=== PATIENT | male | born 1950 | race Caucasian/White ===

== ENCOUNTER → 2017-01-17 | Outpatient (CLI) | payer MEDICARE, BC | END | disposition home or self-care (01) | LOC: GMAL 10:31 | PROVIDERS: ATTEND Family Medicine | DX: D51.3 Other dietary vitamin B12 deficiency anemia (principal); Z12.5 Encounter for screening for malignant neoplasm of prostate; E55.9 Vitamin D deficiency, unspecified | CPT/HCPCS: 82306; 82607; G0103 ==

== ENCOUNTER → 2017-04-17 | Outpatient (CLI) | payer MEDICARE, BC ==
--- NOTE | 2017-04-18 08:43 | MRI ---
EXAM DESCRIPTION: Cervical Spine CLINICAL HISTORY: 67 years,Male,CERVICALGIA COMPARISON: None TECHNIQUE: MRI performed multiple sequences of the cervical spine. FINDINGS: The signal in the cervical vertebral bodies are unremarkable. The cervical cord is normal signal and morphology. Surrounding soft tissues unremarkable. Dense and arch of C1: unremarkable. C2-3: There is no significant loss of disc height. There is minimal broad-based disc bulge. Facets are minimal hypertrophy. No neural foraminal stenosis. No spinal canal stenosis. C3-4: There is no significant loss of disc height. There is minimal broad-based disc bulge. Facets are mild to moderate right mild left hypertrophy. Mild right neural foraminal stenosis. No spinal canal stenosis. C4-5: There is minimal loss of disc height. There is minimal focal central disc bulge. Facets are moderate to severe right facet hypertrophy mild left. Minimal if any right neural foraminal stenosis. No spinal canal stenosis. C5-6: There is moderate loss of disc at. There is moderate annular disc bulge of about 4 mm thickness. Facets are moderate hypertrophy. Mild bilateral neural foraminal stenosis. Minimal spinal canal stenosis. C6-7: There is moderate severe loss of disc height. There is moderate annular disc bulge of 3 mm thickness. Facets are mild hypertrophy. Mild bilateral neural foraminal stenosis. Minimal spinal canal stenosis. C7-T1:There is no significant loss of disc height. There is no disc bulge. Facets are mild hypertrophy bilaterally.. No neural foraminal stenosis. No spinal canal stenosis. IMPRESSION: There are disc bulges and facet arthropathy as described above throughout the cervical spine with the worse disc bulges at C5 and C6 resulting in minimal spinal canal stenosis. And a few levels of mostly mild neural foraminal stenosis from C3 through C6-7. Due mostly to the disc bulges and facet arthropathy. Electronically signed by: Bairon Schwartz MD 04/18/2017 8:41 AM CDT
--- NOTE | 2017-04-18 09:33 | MRI ---
EXAM DESCRIPTION: Lumbar Spine w/wo Contrast CLINICAL HISTORY: 67 years,Male,LOW BACK PAIN COMPARISON: None TECHNIQUE: MRI before multiple sequences of the lumbar spine. With and without gadolinium contrast FINDINGS: The vertebral bodies demonstrate a 1.2 cm hemangioma in the body of L3. Spinal cord normal signal and morphology. Tip of the conus is at L1-L2. No enhancement Surrounding soft tissues unremarkable. L5-S1: Disk height is moderate loss. There is mild annular disc bulge up to 3 mm in thickness. The facettes mild hypertrophy. There is no spinal canal stenosis. There is moderate bilateral neural foraminal stenosis due mostly to loss of disc height and disc bulge. L4-5: Disk height is minimal loss. There is mild annular disc bulge but a 3 mm thickness and a small posterior central area of high intensity in the disc. The facettes moderate hypertrophy bilaterally. There is no spinal canal stenosis. There is moderate bilateral neural foraminal stenosis worse on the right due to disc bulge mostly. L3-4: Disk height is unremarkable. There is minimal annular disc bulge. The facettes moderate hypertrophy. There is no spinal canal stenosis. There is moderate bilateral neural foraminal stenosis due to facet hypertrophy and disc bulge. L2-3: Disk height is unremarkable. There is minimal annular disc bulge. The facettes moderate hypertrophy bilaterally. There is no spinal canal stenosis. There is no neural foraminal stenosis. L1-2: Disk height is unremarkable. There is mild posterior lateral disc bulges. The facettes moderate hypertrophy bilaterally. There is no spinal canal stenosis. There is no neural foraminal stenosis. IMPRESSION: There is neural foraminal stenosis mostly moderate the lower 3 lumbar levels due to mostly to disc bulge and loss of disc height and to some degree facet arthropathy. There is moderate facet arthropathy at the upper 2 lumbar levels but no stenosis. Small annular fissure in the posterior central L4-5 disc bulge. Electronically signed by: Bairon Schwartz MD 04/18/2017 9:32 AM CDT
== END | disposition home or self-care (01) ==
LOC: MRI 11:10
PROVIDERS: ATTEND Family Medicine
DX: M48.06 Spinal stenosis, lumbar region (principal); M48.02 Spinal stenosis, cervical region

== ENCOUNTER → 2017-06-01 | Outpatient (CLI) | payer MEDICARE, OTHER | END | disposition home or self-care (01) | LOC: GMAL 10:36 | PROVIDERS: ATTEND Family Medicine | DX: E55.9 Vitamin D deficiency, unspecified (principal); M10.9 Gout, unspecified ==

== ENCOUNTER → 2017-06-09 | Outpatient (CLI) | payer MEDICARE, OTHER ==
--- NOTE | 2017-06-11 00:36 | CT ---
EXAM DATE: 06/09/2017 12:00 AM PLANT CONTROLS SPECIALIST. PROCEDURE: CT NECK ANGIOGRAPHY WITH IV CONTRAST. INDICATION: CAROTID ARTERY STENOSIS. COMPARISON: None. TECHNIQUE: Axial CT images of the neck were obtained after administration of intravenous contrast. Coronal and sagittal maximal intensity projection reformatted images were also obtained. 3-D postprocessing was acquired at an independent workstation. This exam was performed according to our departmental dose-optimization program which includes use of Automated Exposure Control, adjustment of the mA and/or kV according to patient size and/or use of iterative reconstruction technique. FINDINGS: Moderate calcific atherosclerosis of the aortic arch. The left vertebral artery arises from the aortic arch. Otherwise conventional arch anatomy. The right common carotid artery demonstrates normal course and caliber. There is mild calcific atherosclerosis of the carotid bulb without significant stenosis of the proximal right internal carotid artery. The remainder of the right ICA is unremarkable. The left common carotid artery demonstrates normal course and caliber. There is moderate soft and calcified plaque at the carotid bulb without significant stenosis of the left ICA. The remainder of the left ICA: Is unremarkable. Codominant vertebral arteries. No significant stenosis. Note is made of origin bilateral assistant plant controller bilaterally. The partially visualized intracranial contents are unremarkable. Normal orbits, paranasal sinuses, and mastoid air cells. The soft tissues of the neck are unremarkable. Unremarkable aerodigestive tract. Atrophic or absent right parotid gland. Bulky left cervical lymphadenopathy at the level two and level three station, for example level 2A image 67 series 2 measuring 2.6 cm, and level three image 52 measuring 2.5 cm. IMPRESSION: Scattered atherosclerotic plaque of the bilateral carotid bulbs without significant stenosis of the major neck vessels. Bulky lymphadenopathy of the left level two and level three stations. Short-term interval follow-up or tissue sampling is recommended to evaluate for malignancy. Absent or atrophic right parotid gland. Electronically signed by: Ari Jeffers MD 06/11/2017 12:35 AM PLANT CONTR[employer] SPECIALIST
== END | disposition home or self-care (01) ==
LOC: CT 11:04
PROVIDERS: ATTEND Family Medicine
DX: I65.23 Occlusion and stenosis of bilateral carotid arteries (principal)

== ENCOUNTER 2017-09-20 13:50 | Inpatient (IN) | payer MEDICARE, OTHER ==
[2017-09-20] MEDS ORDERED: SODIUM CHLORIDE 0.9% 1000ML 1,000 ML IVS ONE ×2 (14:07→21:06)
[2017-09-20] MEDS ORDERED: predniSONE 20 MG TAB PO ONE (14:07)
[2017-09-20] MEDS ORDERED: ONDANSETRON ODT 8 MG TAB SL ONE (14:07)
[2017-09-20] MEDS ORDERED: FLUCONAZOLE 100 MG TAB PO ONE (14:07)
[2017-09-20] MEDS ORDERED: POTASSIUM CHLORIDE ELIXIR 20 MEQ/15 ML UD PO ONE (14:41)
--- NOTE | 2017-09-20 15:06 | RAD ---
EXAM DESCRIPTION: Abdomen Series CLINICAL HISTORY: 67 years Male, nvd COMPARISON: January 04, 2010 FINDINGS: A right-sided PICC line is present without apparent complication. The cardiomediastinal silhouette is unremarkable. Subsegmental atelectasis or scarring is noted in the left base, but there is no airspace consolidation or pleural effusion. No free subdiaphragmatic gas or intra-abdominal air-fluid level. The bowel gas pattern is nonobstructive. Several small pelvic calcifications probably represent phleboliths. Medical tubing projecting over the upper abdomen probably represents a feeding tube. There is no suspicious bone lesion. IMPRESSION: No acute findings. Electronically signed by: Kingston Gray MD 09/20/2017 3:05 PM DOOR SLINGER
--- NOTE | 2017-09-20 16:00 | RAD ---
EXAM DESCRIPTION: Chest,2 Views CLINICAL HISTORY: 67 years Male, backed up picc line, afib new COMPARISON: 04 January 2010 TECHNIQUE: PA/lateral FINDINGS: A PICC line is seen in place on the patient's right with the distal tip in the region of the superior vena cava. The lungs are clear. The heart is within range of normal. No pleural fluid is seen. IMPRESSION: A right-sided PICC line is seen with the distal tip in the region of the superior vena cava. Electronically signed by: Bairon Blackwell MD 09/20/2017 3:59 PM [facility]
[2017-09-20] MEDS ORDERED: METOPROLOL TARTRATE 25 MG TAB PO ONE (16:43)
[2017-09-20] MEDS ORDERED: cefTRIAXone SODIUM 1 GM in SODIUM CHL 0.9% 50ML MIN-BAG+ 50 ML IVPB ONE (16:57)
[2017-09-20] MEDS ORDERED: cefTRIAXone SODIUM 1 GM VIAL ONE (17:39)
[2017-09-20] MEDS ORDERED: SODIUM CHL 0.9% 50ML MIN-BAG+ 50 ML IVPB ONE (17:40)
--- NOTE | 2017-09-20 17:56 | ED.PDOC ---
History of Present Illness - General Chief Complaint: General Stated Complaint: dizziness, weakness Time Seen by Provider: 09/20/17 13:53 Source: patient Exam Limitations: no limitations - History of Present Illness Initial Comments: the patient is a 67-year-old male presenting to the emergency room secondary to generalized weakness and dizziness. He has been feeling this for the last for 5 days. He has had episodes in the past of significant idiopathic tachycardia he reports. He has not been on any blood thinners. He does not know of any history of atrial fibrillation or atrial flutter. He is not having any chest pain. He does get shortness of breath with activity. Blood pressures were low here today on the order of 80s to 90s on the systolic end. Heart rates have ranged from 140-180 at rest. Telemetry and EKG showed atrial fibrillation with rapid ventricular rate. Again this is a new diagnosis to the patient. 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 He has treated and Alytics for this. He did just have radiation couple of days ago. He had chemotherapy somewhere between 10 days and 2 weeks ago. He had blood work done around a week ago showing a normal kidney function. the patient has not had any fevers. No dysuria. He does have chronic neck pain. No productive cough. No runny nose. No headache. No syncope. Today he has had a couple of near syncopal episodes with standing. He did have a couple of episodes of diarrhea this morning. No blood. Timing/Duration: unsure Severity: mild Improving Factors: nothing Worsening Factors: nothing Associated Symptoms: loss of appetite, malaise, shortness of breath - With exertion Allergies/Adverse Reactions: Allergies NO KNOWN ALLERGY Allergy (Verified 09/20/17 14:12) Review of Systems - Review of Systems Constitutional: States: malaise, weakness - generalized EENTM: States: throat pain - hronic from his cancer Respiratory: States: short of breath - with activity Cardiology: States: no symptoms reported Gastrointestinal/Abdominal: States: diarrhea - today only Genitourinary: States: no symptoms reported Musculoskeletal: States: no symptoms reported Skin: States: no symptoms reported Neurological: States: no symptoms reported Endocrine: States: no symptoms reported All other Systems: No Change from Baseline Past Medical History (General) - Patient Medical History Hx Hypertension: Yes Hx Gastroesophageal Reflux: Yes Hx Cancer: Yes - epiglottis, neck - Vaccination History Hx Influenza Vaccination: Yes Hx Pneumococcal Vaccination: No - Social History Hx Tobacco Use: No Hx Alcohol Use: No Family Medical History - Family History Mother Family History: Unknown Physical Exam - Physical Exam General Appearance: Alert, Frail, Ill Appearing Eye Exam: bilateral normal Ears, Nose, Throat: hearing grossly normal, other - nares are clear. Neck: other - e does have chronic changes from his medical procedures including his tracheostomy Respiratory: lungs clear, normal breath sounds, no respiratory distress, no accessory muscle use Cardiovascular/Chest: normal peripheral pulses, no edema, tachycardia - irregular Peripheral Pulses: radial,right: 2+, radial,left: 2+, dorsalis pedis,right: 2+, dorsalis pedis,left: 2+ Gastrointestinal/Abdominal: non tender - g-tube is in place, soft Rectal Exam: deferred Back Exam: normal inspection, no CVA tenderness, no vertebral tenderness Extremity: normal range of motion, non-tender, normal inspection, no pedal edema , normal capillary refill Neurologic: box toe stitcher II-XII nml as tested, alert, normal mood/affect, oriented x 3 Skin Exam: pallor - ild Comments: Vital Signs - 24 hr 09/20/17 09/20/17 09/20/17 14:00 15:00 16:00 Temperature 97.4 F L Pulse Rate [ 92 H 140 H 106 H pulse ox] Respiratory 20 20 16 Rate Blood Pressure 100/58 95/53 127/53 [Left Arm] O2 Sat by Pulse 98 100 98 Oximetry Progress - Progress Progress: 09/20/17 17:58 the patient is a 67-year-old male presenting primarily due to symptoms that are likely related to hypotension. The patient does have some acute renal failure which may be due to hypotension but may also be partially due to mild dehydration, and certainly possibly chemotherapy toxicity.. The patient was given a liter of IV fluids. His kidney function does need to be followed. The patient does appear to have new onset atrial fibrillation with rapid ventricular rate. He has received 10 mg of IV diltiazem and 25 mg of oral metoprolol and is slowing down nicely. Additionally x-ray did show that his PICC line did appear to be in too far into the right atrium and possibly the upper part of the right ventricle. This was pulled back approximately 8 cm and x-ray was repeated confirming appropriate placement. This also did improve his heart rate. This PICC line has been in place for approximately 3 weeks. this is the most likely source for the new onset atrial fibrillation however infection and chemotherapy toxicity are certainly possibilities. Coronary artery disease can also not definitively be ruled out. The patient has a borderline troponin which is most likely due to hypotension. This can also be repeated later. The patient is feeling better with this treatment. No definitive source of infection has been found. However given his chemotherapy that he did receive the patient did also receive a dose of some stress dose steroids as well as a dose of Rocephin empirically and a dose of oral Diflucan empirically. The patient will be admitted for further monitoring overnight. For now I'm avoiding anticoagulation as he just had a foreign body removed from his right atrium and this may worsen internal bleeding/irritation. It may be reasonable to start anticoagulation tomorrow. It is uncertain how long the patient has been in atrial fibrillation. I do not have previous EKGs or telemetry monitoring to compare to. Monitor electrolytes. 09/20/17 18:04 critical care time spent is 30 minutes on management of the patient's conditions and plan of care. This excludes otherwise billable procedures. - Results/Orders Results/Orders: 09/20/17 14:06 Telemetry .CONTINUOUS A. fib with RVR with rates ranging from 140-180 bpm 09/20/17 14:15 EKG STAT atrial fibrillation with rapid ventricular rate and rate of 150 bpm. There is a right bundle branch block. Difficult to interpret otherwise. 09/20/17 17:07 BLOOD CULTURE Stat Laboratory Results - last 24 hr 09/20/17 09/20/17 09/20/17 14:21 14:21 14:21 WBC 11.5 H RBC 5.19 Hgb 15.3 Hct 45.1 MCV 86.9 MCH 29.4 MCHC 33.9 RDW 13.4 Plt Count 252 MPV 9.1 Absolute Neuts (auto) 9.30 H Absolute Lymphs (auto) 1.20 Absolute Monos (auto) 1.00 H Absolute Eos (auto) 0.00 Absolute Basos (auto) 0.00 Neutrophils % 80.8 H Lymphocytes % 10.1 L Monocytes % 8.4 Eosinophils % 0.3 L Basophils % 0.4 PT 11.2 INR 0.990 PTT (SP) 25.9 Sodium 132 L Potassium 3.3 L Chloride 94 L Carbon Dioxide 23 Anion Gap 18.3 H BUN 57 H Creatinine 2.56 H BUN/Creatinine Ratio 22.3 H Random Glucose 138 H Serum Osmolality 282.5 Lactic Acid Calcium 9.0 Magnesium 1.9 Total Bilirubin 1.0 AST 47 H ALT 81 H Alkaline Phosphatase 48 Creatine Kinase 25 L CK-MB (CK-2) 1.6 CK-MB (CK-2) % Not Reportable Troponin I 0.06 H Serum Total Protein 6.3 L Albumin 3.4 Globulin 2.9 Albumin/Globulin Ratio 1.2 Amylase 42 Lipase 18 L TSH 1.53 Urine Color Urine Appearance Urine pH Ur Specific [place] Urine Protein Urine Glucose (UA) Urine Ketones Urine Blood Urine Nitrite Urine Bilirubin Urine Urobilinogen Ur Leukocyte Esterase Urine RBC Urine WBC Ur Epithelial Cells Amorphous Sediment Urine Bacteria Urine Mucus 09/20/17 09/20/17 14:21 17:44 WBC RBC Hgb Hct MCV MCH MCHC RDW Plt Count MPV Absolute Neuts (auto) Absolute Lymphs (auto) Absolute Monos (auto) Absolute Eos (auto) Absolute Basos (auto) Neutrophils % Lymphocytes % Monocytes % Eosinophils % Basophils % PT INR PTT (SP) Sodium Potassium Chloride Carbon Dioxide Anion Gap BUN Creatinine BUN/Creatinine Ratio Random Glucose Serum Osmolality Lactic Acid 2.4 H* Calcium Magnesium Total Bilirubin AST ALT Alkaline Phosphatase Creatine Kinase CK-MB (CK-2) CK-MB (CK-2) % Troponin I Serum Total Protein Albumin Globulin Albumin/Globulin Ratio Amylase Lipase TSH Urine Color Yellow Urine Appearance Clear Urine pH 6.0 Ur Specific [place] 1.015 Urine Protein 30 Urine Glucose (UA) Negative Urine Ketones Negative Urine Blood Negative Urine Nitrite Negative Urine Bilirubin Negative Urine Urobilinogen 0.2 Ur Leukocyte Esterase Negative Urine RBC 1-3 Urine WBC 3-5 H Ur Epithelial Cells 0 Amorphous Sediment Trace Urine Bacteria 1+ Urine Mucus Small Departure - Departure Clinical Impression: Atrial fibrillation with RVR Hypotension Qualifiers: Hypotension type: other hypotension type Qualified Code(s): I95.89 - Other hypotension Acute renal failure Qualifiers: Acute renal failure type: unspecified Qualified Code(s): N17.9 - Acute kidney failure, unspecified Disposition: Admit Patient Referrals: Bairon Rehman III, MD [Primary Care Provider] - 1-2 Weeks Decision To Admit - Decistion To Admit Decision to Admit Reason: Medical Nature Decision to Admit Date: 09/20/17 Decision to Admit Time: 18:05
--- NOTE | 2017-09-20 18:39 | HP ---
SUPERVISING PHYSICIAN: Jose Rodriguez MD CHIEF COMPLAINT: Dizziness and weakness. HISTORY OF PRESENT ILLNESS: Mr. Borrego is a 67-year-old, male patient who presented to the Emergency Room due to some generalized weakness and dizziness. He noted he had been feeling off and on similar symptoms of being weak and dizzy for over five days. He noted he felt like he had some palpitations in the past several days, but was unsure. 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 He has had two rounds of radiation and has had his first round of chemotherapy two weeks previously. He has a PICC line in place as well as PEG tube. He denied any chest pain, has no history of atrial fibrillation. Initially, his blood pressure in the Emergency Department showed that he was hypotensive with a blood pressure of 95/53 with heart rate 140. EKG was performed in the Emergency Room and showed that he was in atrial fibrillation with a rapid ventricular response. Chest x-ray was performed and per review of the x-ray by Emergency Room physician, Dr. Aldo Rodriguez, it was noted that the PICC line tip was advanced into what appeared to be possibly the right atrium or further. Dr. Rodriguez did pull the PICC line approximately 8 cm after which x-ray was repeated confirming appropriate placement. Laboratory studies showed he had an elevated troponin of 0.06. He denied any chest pains. His other laboratory studies showed his renal function had decreased and significantly worsened with his creatinine now being at 2.56 with no history of renal insufficiency. He is post chemotherapy approximately two weeks for initial treatment. Lactic acid was elevated at 2.4 with anion gap also elevated at 18.3. White count showed a mild leukocytosis of 11,500 with a left shift, but no bands. He was given 1 liter of fluid which did improve his blood pressure as well as he had good response to pulling back the PICC line catheter showing that his heart rate had gone down into the 120s. He was then given Cardizem 10 mg IV as well as 25 mg p.o. of Lopressor. Given that he is certainly in an immunocompromised states with chemotherapy with a leukocytosis even though being afebrile, Dr. Aldo Rodriguez did start the patient on antibiotic coverage with Rocephin as well as gave him a one time dose of Diflucan. Other laboratory studies included coagulation studies that showed normal PT, PT-T. Urinalysis showed normal dipstick with microscopic showing 3 to 5 WBCs, 1 to 3 RBCs with 1+ bacteria. After 1 liter of fluid and Cardizem, the patient was showing better control of his ventricular rate, staying in the 100s to 110. Blood pressure improved to 133/60 with better control of his heart rate. His liver functions showed a slight elevation of his AST, ALT, but his amylase and lipase were normal. TSH also was normal. Given that he was showing a change in rhythm with no history of atrial fibrillation, this was considered new onset with a rapid ventricular response requiring IV Cardizem for rate control as well as p.o. beta atiya along with levels of lactic acid and leukocytosis, Dr. Rodriguez requested the patient be admitted to the Medical/Surgical Floor for further cardiac telemetry, monitoring and additional IV fluids for underlying dehydration and correction of his electrolyte imbalance as well as treatment of the acute renal failure. He was admitted in stable condition. PAST MEDICAL HISTORY: 1. Hyperlipidemia. 2. Hypertension with last echocardiogram completed in August of 2016 showing a grade 1 diastolic dysfunction with an estimated left ventricular ejection fraction of 65%. 3. History of colonic polyps. 4. Diverticulosis. 5. Gastroesophageal reflux disease. 6. Hiatal hernia. 7. Erectile dysfunction. 8. 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 9. Obstructive sleep apnea. 10. Chronic tobacco abuse. PAST SURGICAL HISTORY: 1. Left glossectomy and left partial pharyngectomy with left partial epiglottectomy with a PEG tube and trach on 08/02/17. 2. Uvula removal for sleep apnea in 1985. HOME MEDICATIONS: 1. Valsartan/hydrochlorothiazide 320-25 mg 1 tablet daily. 2. Zofran ODT 8 mg q.8h. p.r.n. 3. Prilosec 20 mg daily. 4. Melatonin 10 mg daily. 5. Acetaminophen with codeine elixer 120-12 20 mL q.4h. p.r.n. 6. Reglan syrup 5 mg q.6h. p.r.n. 7. Ativan 1 mg p.r.n. 8. Aspirin 81 mg at bedtime. 9. Lipitor 40 mg at bedtime. 10. Amlodipine 5 mg daily. 11. Vitamin B12 1000 mcg daily. 12. Doxazosin Mesylate 1 mg at bedtime. 13. Dexamethasone 4 mg p.r.n. 14. Potassium chloride 10 mEq daily. ALLERGIES: NO KNOWN DRUG ALLERGIES. FAMILY HISTORY: Father at age 68 secondary to hypertension and diabetes. Mother at age 52 secondary to inflammatory breast cancer. 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 He is and lives in [place]. He has a history of smoking 2 packs a day, but quit when he was diagnosed with cancer in June of 2017. He admits to drinking alcohol frequently, but denies any illicit drug use. REVIEW OF SYSTEMS: CONSTITUTIONAL: General malaise, weakness post radiation and chemotherapy. HEENT: Chronic throat pain from his cancer. RESPIRATORY: He does have some shortness of breath with activity. Denies cough or wheezing. CARDIOVASCULAR: Denies chest pain, palpitations or syncopal episodes. GASTROINTESTINAL: He had one episode of diarrhea today and has been constipated in the last week. He has a PEG tube in place since his surgery in July. GENITOURINARY: Denies dysuria, hematuria or other urinary symptoms. MUSCULOSKELETAL: Generalized malaise, no reported swollen joints. INTEGUMENTARY: Denies rashes or lesions. NEUROLOGIC: No reported syncopal episodes, vision changes, hearing changes or other neurological deficits. PHYSICAL EXAMINATION: VITAL SIGNS: On admission to the Emergency Department, heart rate initially of 140, blood pressure 95/53, saturation 100% on room air, respirations 20, afebrile at 97.4. Status post Cardizem and movement of the PICC line, blood pressure improved with fluids and was up to 127/53 with a heart rate 106, saturation 98% on room air. Admission weight 110.3 kg. GENERAL: On examination on the Medical/Surgical Floor, the patient appears to be comfortable and in no acute distress, somewhat dehydrated, but well- nourished. HEENT: Tympanic membranes clear bilaterally. Oropharynx is pink with mucous membranes dry with no lesions. There are chronic changes from his previous surgery including a tracheostomy incision that is healed. RESPIRATORY: Lungs clear to auscultation bilaterally without any notable rhonchi , wheezes, or rales. CARDIOVASCULAR: Heart tones distant, slightly irregular rate with a notable controlled ventricular rate on the monitor on admission. ABDOMEN: Obese, but soft, nontender. Positive bowel sounds. G-tube in place. EXTREMITIES: There is no cyanosis, clubbing or edema. NEUROLOGIC: The patient is alert and oriented times three. Cranial nerves II- XII are grossly intact. Facial features are symmetrical. Extraocular movements are within normal limits. There is no nystagmus noted. LABORATORY: White count 11,500, hemoglobin 15.3, hematocrit 45.1, platelet count 252,000. Differential does show a left shift, but no bands noted. PT, PT -T within normal limits. Chemistries showed low sodium 132, potassium down to 3.3, carbon dioxide normal, anion gap up at 18.3, BUN 57, creatinine 2.56, glucose 138, serum osmolality 282, lactic acid 2.4 initially. Calcium normal at 9.0, magnesium normal at 1.9. Liver functions showed normal bilirubin, AST elevated elevated at 47, ALT 81. Creatinine kinase 25, CK-MB 1.6, troponin 0.06. Amylase and lipase were both normal. TSH normal at 1.53. Urinalysis showed normal dipstick with microscopic showing RBCs 1 to 3, WBCs 3 to 5, no epithelial, amorphus material, 1+ bacteria, small amount of mucus. MICROBIOLOGY: Urine culture pending. Blood cultures pending. EK-lead EKG showed atrial fibrillation with rapid ventricular response in 140s with a third degree bundle branch block. No comparisons were available at time of admission. RADIOLOGY: Abdominal x-ray in the Emergency Department per radiologic interpretation showed right sided PICC line present without any apparent complications. Mediastinal silhouette unremarkable. There was atelectasis scar noted in the left base, but no airspace consolidations, pleural effusions, no free air, gas, no air-fluid levels. Bowel gas pattern was nonobstructive with several small pelvic calcifications probably representing phleboliths. There was note of G-tube in upper abdomen. No suspicious bone lesions. This followed up with a two-view chest x-ray and per radiologic interpretation showed PICC line in place on the patient's right with distal tip in the superior vena cava. Lungs were clear. Heart within normal range. No pleural effusion seen. ASSESSMENT: 1. New onset atrial fibrillation with rapid ventricular rate, possibly secondary to placement of a PICC line within the atrium, improving with repositioning of the PICC line with the patient having a slightly elevated troponin on admission without any reported chest pains, requiring further telemetry and monitoring to rule out acute myocardial ischemia. 2. Status post left glossectomy, partial pharyngectomy and epiglottectomy on 08/02/17 having received one round of chemotherapy and multiple rounds of radiation therapy within the last three weeks. 3. Leukocytosis with a left shift, uncertain etiology, with the patient being immunocompromised secondary to #2 with initial antibiotic coverage with Rocephin as well as Diflucan with an elevated lactic acid concerning for early sepsis versus poor perfusion secondary to hypotension from atrial fibrillation with rapid ventricular response. 4. Electrolyte imbalance with hypokalemia and hyponatremia likely secondary to ongoing chemotherapy and inadequate nutritional intake. 5. Acute renal failure with no history of renal dysfunction, felt to be secondary to recent initiation of chemotherapy agent and exacerbated by underlying prerenal azotemia from dehydration and poor perfusion for hypotension secondary to new onset atrial fibrillation. 6. Elevated troponin without any reported chest pains with EKGs show atrial fibrillation and left bundle branch block with a rapid ventricular response, possibly secondary to hypoperfusion from dehydration and new onset of atrial fibrillation with rapid ventricular response. 7. Questionable acute cystitis with cultures pending. 8. History of chronic obstructive pulmonary disease in a chronic smoker without evidence of exacerbation. 9. History of hypertension, but hypotensive on admission, again secondary to poor perfusion, dehydration and atrial fibrillation with rapid ventricular response. 10. Gastroesophageal reflux disease with G-tube in place status post treatment for neck and tongue cancer and undergoing radiation and chemotherapy. 11. Chronic tobacco abuse, having quit a month previous. 12. Obstructive sleep apnea. PLAN: The patient is to be admitted to the Medical/Surgical Floor for ongoing treatment and evaluation. He will be on cardiac telemetry. He was given Cardizem and Toprol in the Emergency Room which did control his rate. We will closely observe this for considerations of continuation of a beta atiya in the morning. He is on an ARB and a diuretic which is to be held currently given his current renal function. He was given 1 liter of fluids in the Emergency Room. Considering his degree of dehydration, we will follow this up with another liter of fluid over 2 hours to followup with fluids of normal saline and 20 of potassium at 125 an hour with close monitoring of his I&Os. He was given antibiotics in the Emergency Room. This will be consideration for continuation tomorrow after touching base with both Dr. Ring and Dr. Dale in regards to current plan of care given his recent chemotherapy and radiation therapy. We will recheck his cardiac enzymes and monitor closely and address appropriately. We will go ahead and culture urine and await culture results to further target any possible needed antibiotic therapy. His diet will consist of his normal diet prior to admission which was Glucerna 2.1 as further instructions to be provided by his current plan of care nutritional status. We will anticipate his length of stay to be at least two to three days. We will await further decision on starting anticoagulation until we can talk with Dr. Ring and Dr. Dale and considerations for cardiology consult given his current troponin levels. We will plan to repeat labs in the morning as well as additional chest x-ray. We will continue to monitor and treat appropriately until clinically stable and then he will be discharged home safely. #[id number] [facility]TD[facility]
[2017-09-20] MEDS ORDERED: SODIUM CHLORIDE 0.9% (FLUSH) 10 ML SYG IV PRN (20:31)
[2017-09-20] MEDS ORDERED: ACETAMINOPHEN 325 MG TAB PO PRN (20:31)
[2017-09-20] MEDS: KCL 20 MEQ/NS 1,000 ML IVS PRN (20:55)
[2017-09-20] MEDS ORDERED: IV SET AND CAP CHANGE INJ INJ SCH (21:00)
[2017-09-20] MEDS ORDERED: METOCLOPRAMIDE HCL 5 MG TAB PO PRN (21:42)
[2017-09-20] MEDS ORDERED: LORazepam 1 MG TAB PO PRN (22:00)
[2017-09-20] MEDS ORDERED: ENOXAPARIN SODIUM 30 MG/0.3 ML SYG SUBCU ONE (22:51)
[2017-09-21] MEDS: KCL 20 MEQ/NS 1,000 ML IVS PRN ×2 (06:20→16:22)
[2017-09-21] MEDS ORDERED: CYANOCOBALAMIN 1,000 MCG TAB ONE (07:11)
[2017-09-21] MEDS: CYANOCOBALAMIN 1,000 MCG TAB PO SCH (08:48)
[2017-09-21] MEDS: amLODIPine BESYLATE 5 MG TAB PO SCH (08:48)
[2017-09-21] MEDS ORDERED: OMEPRAZOLE CAP 20 MG CAP PO SCH (09:00)
[2017-09-21] MEDS ORDERED: MAGNESIUM SULFATE PREMIX 2GM 2 GM in PREMIX BAG 1 BAG IVPB ONE (10:04)
[2017-09-21] MEDS ORDERED: MAGNESIUM SULFATE PREMIX 2GM 50 ML IVPB ONE (10:41)
[2017-09-21] MEDS ORDERED: SODIUM CHLORIDE 0.9% 1000ML 1,000 ML IVS ONE (11:43)
[2017-09-21] MEDS: APIXABAN 2.5 MG TAB PO SCH ×2 (14:25→20:30)
[2017-09-21] MEDS ORDERED: MAGNESIUM HYDROXIDE 30 ML UD PO ONE (14:31)
[2017-09-21] MEDS: POLYETHYLENE GLYCOL 3350 17 GM PCKT PO SCH (14:40)
[2017-09-21] MEDS: DOXYCYCLINE HYCLATE CAP 100 MG CAP PO SCH ×2 (14:40→20:30)
[2017-09-21] MEDS ORDERED: OMEPRAZOLE CAP 20 MG CAP ONE (16:09)
[2017-09-21] MEDS ORDERED: ATORVASTATIN 20 MG TAB PO ONE (16:09)
[2017-09-21] MEDS ORDERED: MELATONIN 3 MG TAB ONE (16:10)
[2017-09-21] MEDS ORDERED: ASPIRIN EC 81 MG TAB PO ONE (16:10)
--- NOTE | 2017-09-21 19:41 | PN ---
DATE: 09/21/17 SUPERVISING PHYSICIAN: Jose Rodriguez M.D. SUBJECTIVE: The patient this morning has been afebrile. He has had no nausea or vomiting. He denied any chest pains, shortness of breath or dizziness. Notes that he feels much better since his heart rate has been well controlled after pulling back on the PICC line. I did contact Cardiology last night on admission in regards to recommendation on treatment and the surveyor hydrographic in [place] recommended observation, close monitoring on telemetry with repeat cardiac enzymes and call his survey[facility] in the morning. This morning, he was without any chest pains and cardiac enzymes had gone up once again, and after discussing the case with Dr. Bangura, it was felt that the patient had experienced an ischemic stress event induced by the acute atrial fibrillation with RVR resulting in ischemic demand. The patient is continuing to show a stable heart rate this morning. OBJECTIVE: VITAL SIGNS: Temperature 97.9, pulse 60 showing sinus bradycardia with blood pressure 142/72, respirations 18, satting 100% on room air. I's and O's show a positive balance of 600 with 1100 in, 500 out. Weight is 110.3 kg. CHEST: Lungs are clear to auscultation. HEART: Tones remain distant but regular showing sinus bradycardia on monitor and storage bin tender. ABDOMEN: Obese but soft with a G tube in place. Just below the G tube approximately 3 cm is a small area of erythema with a dark area of eschar in appearance with no obvious drainage. EXTREMITIES: No clubbing, cyanosis or edema. NEUROLOGIC: He is alert and oriented times three. LABORATORY: CBC this morning shows normalized white count at 6,400, hemoglobin 14.3, hematocrit 41.6, platelet count 210,000. Differential does continue to show left but improved. Chemistries shows hyponatremia of 133, potassium 4.1, BUN has improved somewhat to 52, creatinine is down to 2.1. Repeat lactic acid last night after admission showed continued elevation at 2.8. A repeat lactic acid at 10:00 this morning showed normalization after additional fluids to 1.5. Troponin initially was 0.24 on admission to the Medical/Surgical floor. Repeat at 5:00 this morning was elevated at 0.34 with a normal CPK-MB, and than an additional repeat at 1:00 showed the troponin to be going down at 0.28. MICROBIOLOGY: Urine culture is pending. Blood cultures remain negative. RADIOLOGY: No additional radiographic studies were obtained. EKG now shows 12-lead with a sinus logan rhythm with a left bundle branch block which is compared to previous an improvement showing previously being in atrial fibrillation with rapid ventricular response with a previous noted bundle branch block on past EKGs. ASSESSMENT: 1. New onset of atrial fibrillation with rapid ventricular rate secondary to placement of PICC line within the atrium, improved with repositioning of the PICC line resulting in elevated troponin felt to be secondary to ischemic demand with the patient being without any chest pains and remaining currently stable with having converted to a sinus rhythm. 2. Status post left glossectomy, partial pharyngectomy and epiglottectomy on 08/02/17 for throat and neck cancer having received one round of chemotherapy and multiple rounds of radiation therapy within the last three weeks. 3. Leukocytosis on admission with no obvious etiology of infection showing improvement after fluids felt to be secondary to stress response and dehydration with the patient having been apparently covered initially in the E. R. with Rocephin and Diflucan given he had an elevated lactic acid. 4. Elevated lactic acid secondary to poor perfusion from hypotension related to the atrial fibrillation and rapid ventricular response showing good response and normalization after fluids. 5. Moderate dehydration, improving with fluids. 6. Electrolyte imbalance with hypokalemia and hyponatremia secondary to poor nutritional intake and recent ongoing chemotherapy showing some improvement with IV fluids. 7. Acute kidney injury with the patient having normal kidney function previously felt to be secondary to poor perfusion during hypotensive episode with the atrial fibrillation and rapid ventricular response showing improvement with rehydration and correction of improving azotemia state. 8. Elevated troponin on admission secondary to irritation from PICC line showing now a converted sinus rhythm with a chronic left bundle branch block resulting in hypoperfusion and exacerbated by dehydration now showing to be clinically stable. 9. Questionable acute cystitis with cultures pending with no symptoms of dysuria or hematuria. 10. History of chronic obstructive pulmonary disease in a chronic smoker without any evidence of exacerbation. 11. History of hypertension, but hypotensive on admission, again secondary to poor perfusion, hypovolemia and dehydration in conjunction with atrial fibrillation and rapid ventricular response now showing improvement after treatment. 12. Gastroesophageal reflux disease with G-tube in place status post treatment for neck and tongue cancer and undergoing radiation and chemotherapy. 13. Chronic tobacco abuse, having quit a month previous. 14. Obstructive sleep apnea. PLAN: The patient will continue with plan of care at this point as his troponin is showing to return to baseline. I have given him several liters of fluid. Will continue with continued IV fluids to correct his underlying dehydration. He has been without any chest pains. Remains on close cardiac telemetry monitoring. I did talk with Dr. Ring as well as Dr. Bangura this morning. Both recommendations were that we start him on anticoagulation with either Eliquis or Xarelto given his kidney function. After discussion with Dr. Rehman and further with Dr. Bangura, it was decided will start him on Eliquis 5 mg b.i.d. as his kidney function is showing to improve with fluids. His lactic acid now has normalized. Will continue his home medications once those have been verified and updated in the electronic medical records. After talking with Dr. Bangura, his recommendations were that the patient should followup with Cardiology next week which he is going to arrange through his office so the patient can see Dr. Lara. Until then, will continue with anticoagulation with Eliquis and Metoprolol for rate control, and close monitoring with anticipation of discharging tomorrow. Given that there is no obvious signs of gross infection systemically, will stop the parenteral antibiotics, but continue antibiotic coverage with doxycycline for the small area of cellulitis underlying the G tube area. Will anticipate discharge tomorrow. Until then, continue to monitor and treat appropriately. #[id number] [facility]
[2017-09-21] MEDS ORDERED: ASPIRIN EC 81 MG TAB PO SCH (21:00)
[2017-09-21] MEDS ORDERED: MELATONIN 3 MG TAB PO SCH (21:00)
[2017-09-21] MEDS ORDERED: ATORVASTATIN 20 MG TAB PO SCH (21:00)
[2017-09-22] MEDS: KCL 20 MEQ/NS 1,000 ML IVS PRN ×2 (00:03→08:04)
[2017-09-22] MEDS ORDERED: OMEPRAZOLE CAP 20 MG CAP PO SCH (06:30)
[2017-09-22] MEDS: DOXYCYCLINE HYCLATE CAP 100 MG CAP PO SCH (08:00)
[2017-09-22] MEDS: amLODIPine BESYLATE 5 MG TAB PO SCH (08:00)
[2017-09-22] MEDS: CYANOCOBALAMIN 1,000 MCG TAB PO SCH (08:00)
[2017-09-22] MEDS: POLYETHYLENE GLYCOL 3350 17 GM PCKT PO SCH (08:00)
[2017-09-22] MEDS: APIXABAN 2.5 MG TAB PO SCH (08:00)
[2017-09-22 09:25] VITALS: O2SAT 97
[2017-09-22 11:05] VITALS: BP 155/74; TEMP 97.8
--- NOTE | 2017-10-07 12:08 | DS ---
DISCHARGE DIAGNOSES: 1.. New onset of atrial fibrillation with rapid ventricular rate secondary to placement of PICC line within the atrium, improved with repositioning of the PICC line resulting in elevated troponin felt to be secondary to ischemic demand after being without any chest pains and remaining stable with having converted to a sinus rhythm prior to discharge. 2. Status post left glossectomy, partial pharyngectomy and epiglottectomy on 08/02/17 for throat and neck cancer having received one round of chemotherapy and multiple rounds of radiation therapy within the last three weeks prior to admission. 3. Leukocytosis on admission with no obvious etiology of infection showing improvement after fluids felt to be secondary to stress response and dehydration with the patient having been covered initially in the E. R. with Rocephin and Diflucan with an elevated lactic acid. 4. Elevated lactic acid secondary to poor perfusion from hypotension related to the atrial fibrillation and rapid ventricular response resolved and normalized after fluids. . 5. Moderate dehydration, improving with fluids. 6. Electrolyte imbalance with hypokalemia and hyponatremia secondary to poor nutritional intake and recent ongoing chemotherapy showing improvement with IV fluids. 7. Acute kidney injury with the patient having normal kidney function previously felt to be secondary to poor perfusion during hypotensive episode with the atrial fibrillation and rapid ventricular response showing improvement with rehydration and correction of improving azotemia state. 8. Elevated troponin on admission secondary to PICC line irritation with the patient being converted to sinus rhythm showing a chronic bundle branch block that resulted in hypoperfusion that was exacerbated by dehydration and showing to be clinically stable by discharge. 9. History of chronic obstructive pulmonary disease in a chronic smoker without evidence of acute exacerbation. 10. History of hypertension, but hypotensive on admission, again secondary to poor perfusion, hypovolemia and dehydration in conjunction with atrial fibrillation and rapid ventricular response showing improvement after treatment. 11. Gastroesophageal reflux disease with G-tube in place status post treatment for neck and tongue cancer and undergoing radiation and chemotherapy. 12. Chronic tobacco abuse, having quit a month previous. 13. Obstructive sleep apnea. REASON FOR HOSPITALIZATION: Mr. Borrego is a 67-year-old, male patient who presented to the Emergency Room on 09/20/87 due to some generalized weakness and dizziness. He noted he had been feeling off and on similar symptoms of being weak and dizzy for over five days. He noted he felt like he had some palpitations in the past several days, but was unsure. 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 He has had two rounds of radiation and has had his first round of chemotherapy in the last two weeks. He had a PICC line in place as well as PEG tube. He denied any chest pain, has no history of atrial fibrillation. Initially, his blood pressure in the Emergency Department showed that he was hypotensive with a systolic pressure of 95 with heart rate of 140. EKG was performed in the Emergency Room and showed that he was in atrial fibrillation with a rapid ventricular response. Chest x-ray was performed and per review of the x-ray by Emergency Room physician, Dr. Aldo Rodriguez, it was noted that the tip of the PICC line was advanced into what appeared to be possibly the right atrium or further. Dr. Rodriguez did pull the PICC line back approximately 8 cm after which x-ray was repeated confirming appropriate placement. Laboratory studies showed he had an elevated troponin of 0.06. He denied any chest pains. His laboratory studies showed his renal function had decreased and significantly worsened with his creatinine at 2.56 but no history of renal insufficiency. He is post chemotherapy approximately two weeks for his initial treatment. Lactic acid was elevated at 2.4 with anion gap that was elevated at 18.3. White count showed a mild leukocytosis of 11,500 with a left shift but no bands. He was given one liter of fluid which did improve his blood pressure as well as he had good response to pulling back the PICC line showing his heart rate had gone down into the 120s. He was then given Cardizem 10 mg as well as 25 mg of Lopressor. Given that he was certainly in an immunocompromised state with chemotherapy and leukocytosis even though being afebrile, Dr. Aldo Rodriguez, Emergency Room physician, did start the patient on antibiotic coverage with Rocephin as well as gave him a one-time dose of Diflucan. Other laboratory studies included coagulation studies with a normal PT, PT-T. Urinalysis showed normal dipstick with microscopic showing 3 to 5 WBCs, 1 to 3 RBCs with 1+ bacteria. After one liter of fluid and Cardizem, his pressure improved to 133/60 with better control of his rate. His liver functions also showed a slight elevation of his AST, ALT, but his amylase and lipase were normal. TSH also was normal. Given that he was showing a change in his rhythm with no history of atrial fibrillation, this was considered new onset with a rapid ventricular response requiring IV Cardizem for rate control as well as p.o. beta atiya along with levels of lactic acid and leukocytosis, Dr. Rodriguez , Emergency Room physician, requested the patient be admitted to the Medical/ Surgical Floor for further cardiac telemetry, monitoring and additional IV fluids for underlying dehydration and correction of his electrolyte imbalance as well as treatment of the acute renal failure. He was admitted in stable condition. LABORATORY STUDIES: White count on admission was 11,500, at discharge was 6, 400. Hemoglobin and stable at 14.3, hematocrit 41.6, platelet count 210,000. Differential did show a left shift but resolving prior to discharge. Coagulation showed normal PT/PTT. Electrolytes initially on admission showed low sodium at 132, potassium 3.3, anion elevated at 18.3 with BUN 57, creatinine 2.56. Liver functions showed elevation of AST at 47, ALT 81 with normal bilirubin at 1. Normal alkaline phosphatase at 48. Troponin was 0.06 and initial amylase and lipase were normal at 42 and 18 respectively. TSH normal at 1.53. Through his hospitalization and prior to discharge, his troponin did show an elevation up to 0.24, again up to 0.34, but prior to discharge he had gone down to 0.28. Electrolyte had normalized. BUN and creatinine had corrected and BUN was down to 38, creatinine down to 1.7. Again, his urinalysis showed a normal chemical analysis. Microscopic revealed 1 to 3 RBCs, 3 to 5 WBCs, no epithelials and 1+ bacteria. MICROBIOLOGY: Urine cultures showed no growth at 48 hours. He had 2 sets of blood cultures remaining negative at 5 days. RADIOLOGY: Chest x-ray in the Emergency Department per radiology interpretation of a 2-view chest showed a right-sided PICC line seen within the distal tip of the in the region of the superior vena cava. Abdominal x-ray and per radiology interpretation revealed no acute findings noted. EKG on admission showed atrial fibrillation with a rapid ventricular response at 150. Additional telemetry showed that he had converted to normal sinus rhythm with a controlled ventricular rate. HOSPITAL COURSE: Mr. Benedict was admitted as noted above for acute onset of atrial fibrillation with rapid ventricular response that was felt to be secondary to a PICC line that had advanced too far. He had this moved back in the Emergency Department which showed good response. He did receive a dose of Cardizem as well as Lopressor and had converted to a sinus bradycardia prior to discharge and was showing to be hemodynamically stable. No etiology of infections was no noted. He was not continued on antibiotics prior to the ones given in the Emergency Department and he continued to show a normal white count and remain afebrile. It was felt that he was showing to be clinically stable on the date of discharge. On the he was showing a sinus rhythm with a left bundle branch block which compared to previous showed improvement with previous bundle branch not noted on last EKG per medical record review. I did talk to Dr. Ring as well as Dr. Bangura in regards to the patient's elevated troponin and need for anticoagulation given his underlying oncology history. Dr. Bangura recommended the patient could be started on Eliquis or Xarelto as well as recommendations from Dr. Ring. After contacting Dr. Rehman who requested the patient be started on Eliquis he was started at 5 mg b.i.d. as his kidney function had improved prior to discharge. Dr. Bangura had made arrangements for the patient to be seen in the next week by Dr. Lara with a phone call from Dr. Lara's office pending at time of discharge. There was an area of mild cellulitis just below the G-tube and given the patient's underlying history of chemotherapy and radiation and immunocompromised state, it was felt that he would best be served with a round of Doxycycline pending any further infectious process and at that point he was started on antibiotics with Doxycycline before he was discharged. PLAN: Mr. Borrego was discharged on 09/22/17 with instructions to have close clinical followup with Dr. Lara, cardiology, the following week after discharge with appointment to be determined, awaiting phone call from Dr. Lara' s office. He was also to have close clinical followup with Dr. Rehman. He was to resume his home medications as instructed and start the Eliquis and the Doxycycline as directed. He was told to call Dr. Lara's office if he did not receive a phone call or call Dr. Rehman office within the week to further followup in regards to the cardiology. He was encouraged to drink plenty of fluids for dehydration and return to the hospital should he have any concerning symptoms. He had new prescriptions provided at dry sterile compression dressing including Eliquis 5 mg twice a day, #60, Doxycycline 100 mg twice a day for 7 days, Miralax 17 grams daily for constipation. Discharge Diet: Regular as tolerated. Activities: Increase as tolerated but no strenuous exercise until seen by Dr. Lara. Condition on discharge: Stable and improved. #[id number] [facility]
== END 2017-09-22 11:56 | disposition home health service (06) | DRG 281 ==
LOC: ER 13:50 → OBSVTOIN 18:37 → MS 18:37
PROVIDERS: ADMIT Nurse Practitioner Family; ATTEND Nurse Practitioner Family
DX: T82.524A Displacement of infusion catheter, initial encounter (principal); I21.A1 Myocardial infarction type 2; N17.9 Acute kidney failure, unspecified; E87.1 Hypo-osmolality and hyponatremia; N30.00 Acute cystitis without hematuria; E87.2 Acidosis; L03.311 Cellulitis of abdominal wall; Y71.1 Therapeutic (nonsurgical) and rehabilitative cardiovascular devices associated with adverse incidents; I48.91 Unspecified atrial fibrillation; C01 Malignant neoplasm of base of tongue; I95.9 Hypotension, unspecified; E87.6 Hypokalemia; I44.7 Left bundle-branch block, unspecified; J44.9 Chronic obstructive pulmonary disease, unspecified; E86.0 Dehydration; T45.1X5A Adverse effect of antineoplastic and immunosuppressive drugs, initial encounter; E78.5 Hyperlipidemia, unspecified; K21.9 Gastro-esophageal reflux disease without esophagitis; K44.9 Diaphragmatic hernia without obstruction or gangrene; I10 Essential (primary) hypertension; G47.33 Obstructive sleep apnea (adult) (pediatric); M54.2 Cervicalgia; G89.29 Other chronic pain; N52.9 Male erectile dysfunction, unspecified; E66.9 Obesity, unspecified; Z98.890 Other specified postprocedural states; Z93.1 Gastrostomy status; Z79.82 Long term (current) use of aspirin; Z79.899 Other long term (current) drug therapy; Z87.891 Personal history of nicotine dependence; Y92.9 Unspecified place or not applicable; Z90.49 Acquired absence of other specified parts of digestive tract; Z92.3 Personal history of irradiation; Z92.21 Personal history of antineoplastic chemotherapy; Z68.33 Body mass index [BMI] 33.0-33.9, adult

== ENCOUNTER 2017-09-29 10:51 | Emergency (ER) | payer MEDICARE, OTHER ==
--- NOTE | 2017-09-29 11:05 | ED.PDOC ---
History of Present Illness - General Chief Complaint: General Stated Complaint: Chills, feeling poorly Time Seen by Provider: 09/29/17 11:00 Source: patient, family Exam Limitations: no limitations Additional Information: IS BEING TREATED WITH RADIATION THERAPY WELL CHEMOTHERAPY. - History of Present Illness Timing/Duration: 1 week Severity: mild Improving Factors: nothing Worsening Factors: nothing Associated Symptoms: fever/chills, nausea/vomiting, weakness Allergies/Adverse Reactions: Allergies NO KNOWN ALLERGY Allergy (Verified 09/20/17 21:17) Home Medications: Ambulatory Orders Acetamin W/Cod Elix 120/12 20 ml PO Q4HR PRN 09/20/17 Amlodipine Besylate 5 mg PO DAILY 09/20/17 Aspirin [Adult Aspirin Regimen] 81 mg PO BEDTIME 09/20/17 Atorvastatin Calcium [Lipitor] 40 mg PO BEDTIME 09/20/17 Cyanocobalamin [Vitamin B-12] 1,000 mcg PO DAILY 09/20/17 Dexamethasone 4 mg PO PRN PRN 09/20/17 Doxazosin Mesylate 1 mg PO BEDTIME 09/20/17 LORazepam [Ativan] 1 mg PO PRN 09/20/17 Melatonin 10 mg PO DAILY 09/20/17 Metoclopramide Syrup [Reglan Syrup] 5 mg PO Q6H PRN 09/20/17 Omeprazole [Prilosec] 20 mg PO DAILY 09/20/17 Ondansetron [Zofran Odt] 8 mg PO Q8H PRN 09/20/17 Potassium Chloride [Klor-Con Sprinkle] 10 meq PO DAILY 09/20/17 Valsartan-Hydrochlorothiazide [Valsartan/Hydrochlorothia 320-25 mg] 1 tab PO DAILY 09/20/17 Apixaban [Eliquis] 5 mg PO BID #60 tab 09/22/17 Doxycycline Hyclate [Vibramycin] 100 mg PO BID #14 cap 09/22/17 Polyethylene Glycol 3350 [Miralax] 17 gm PO DAILY pckt 09/22/17 Review of Systems - Review of Systems Constitutional: States: chills, diaphoresis, fever, malaise, weakness EENTM: Denies: ear pain, nose pain, throat pain, mouth pain Respiratory: Denies: cough, short of breath Cardiology: Denies: chest pain, edema, syncope Gastrointestinal/Abdominal: States: nausea, vomiting. Denies: abdominal pain, constipation, diarrhea Genitourinary: Denies: dysuria, frequency Musculoskeletal: States: back pain. Denies: joint pain, joint swelling Skin: Denies: change in color, dryness Neurological: Denies: headache, numbness Endocrine: Denies: increased hunger, increased thirst, increased urine Hematologic/Lymphatic: Denies: blood clots, easy bleeding All other Systems: Reviewed and Negative Past Medical History (General) - Patient Medical History Hx Seizures: No Hx Stroke: No Hx Asthma: No Hx of COPD: No Hx Congestive Heart Failure: No Hx Pacemaker: No Hx Hypertension: Yes Hx Diabetes: No Hx Gastroesophageal Reflux: Yes Hx Cancer: Yes - epiglottis, neck Hx MRSA: No - Vaccination History Hx Influenza Vaccination: Yes Hx Pneumococcal Vaccination: No - Social History Hx Tobacco Use: No Hx Alcohol Use: No Hx Substance Use: No Hx Physical Abuse: No Hx Emotional Abuse: No Family Medical History - Family History Mother Family History: Unknown Living Status: Still Living Age at (years of age): 53 Cause of : breast CA Father Living Status: Hx Family Diabetes: Yes Physical Exam - Physical Exam General Appearance: Alert, Comfortable, Well Developed, Well Groomed, Well Nourished Ears, Nose, Throat: hearing grossly normal, pharyngeal erythema Neck: non-tender, full range of motion, supple Respiratory: chest non-tender, lungs clear, normal breath sounds, no respiratory distress, no accessory muscle use Cardiovascular/Chest: regular rate, rhythm, no edema Gastrointestinal/Abdominal: normal bowel sounds, non tender, soft, other - HAS FEEDING TUBE IN PLACE Back Exam: normal inspection, no CVA tenderness, no vertebral tenderness Extremity: normal range of motion, non-tender, normal inspection, no pedal edema 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 MR BURGESS IS HERE WITH A HISTORY OF EPIGLOTTIS/ NECK CA WITH INTERMITTED CHILLS AND FEELING POORLY SINCE LAST WEEK. HE HAS BEEN GETTING ABX AND IV FLUIDS AN OUTPATIENT. IS HERE WITH INCREASED NAUSEA/ VOMITING/CHILLS/DEVELOPED SOME BACK PAIN TODAY. WOULD BE CONCERNED FOR UTI, PYELO, BACTEREMIA, PNEUMONIA. WILL ASSESS FOR LUEKOCYTOSIS TODAY, ANEMIA, ELECTROLYTE DERANGEMENTS, ACUTE KIDNEY INJURY, INFECTIOUS ETIOLOGY. 09/29/17 12:36 PT IS LEUKOPENIC AT 1.8, HAS A MARKED ELEVATED LACTATE. HAS FAILED OUTPATIENT ABX OF VANC. I HAVE DISCUSSED WITH DR JOHNSON. WOULD LIKE IV MEROPENAM AND IV VANC. SHE WOULD ALSO LIKE NEUPOGEN 480 MCG. GIVEN THE FAILED OUTPATIENT ANTIBIOTICS AND SEVERE SEPSIS WILL NEED TRANSFER TO [facility] FOR LIKELY ICU PLACEMENT. I HAVE DISUCSSED WITH DR MEYER. WILL ACCEPTED IN TRANSFER. I HAVE DISCUSSED WITH [facility], AGREES THAT PATIENT SHOULD BE TRANSFERRED OUT. 09/29/17 12:50 - Results/Orders Results/Orders: 09/29/17 11:02 URINE CULTURE W/COLONY COUNT Stat 09/29/17 11:35 CBC (AUTOMATED) W/AUTO DIFF Stat BLOOD CULTURE Stat 09/29/17 11:44 Sodium Chloride 0.9% 1000ML [Ns 1000 ml] 1,000 ml IVS ONCE 09/29/17 12:16 BOLUS Sodium Chloride 0.9% 1000ML [Ns 1000 ml] 1,000 ml IVS ONCE 09/29/17 12:17 BOLUS Sodium Chloride 0.9% 1000ML [Ns 1000 ml] 1,000 ml IVS ONCE 09/29/17 12:26 Meropenem [Merrem] 1 gm Sodium Chl 0.9% 50Ml Min-Bag+ [NS 50ml MINI-BAG+] 50 ml IVPB ONCE 09/29/17 12:27 1000MG ONCE ONE (ED ORDER) Vancomycin HCl Inj 1,000 mg Sodium Chloride 0.9% 250Ml [NS 250ml] 250 ml IVPB ONCE Laboratory Results - last 24 hr 09/29/17 09/29/17 09/29/17 11:35 11:35 12:05 Sodium 135 Potassium 3.9 Chloride 99 L Carbon Dioxide 24 Anion Gap 15.9 BUN 20 H Creatinine 1.61 H BUN/Creatinine Ratio 12.4 Random Glucose 121 H Serum Osmolality 274.0 L Lactic Acid 2.5 H* Calcium 8.8 Total Bilirubin 0.8 AST 48 H ALT 44 Alkaline Phosphatase 91 Serum Total Protein 6.5 Albumin 3.1 L Globulin 3.4 Albumin/Globulin Ratio 0.9 L Urine Color Yellow Urine Appearance Clear Urine pH 5.5 Ur Specific [place] 1.020 Urine Protein 30 Urine Glucose (UA) Negative Urine Ketones 15 H Urine Blood Negative Urine Nitrite Negative Urine Bilirubin Moderate Urine Urobilinogen 1.0 Ur Leukocyte Esterase Negative Urine RBC 0 Urine WBC 3-5 H Ur Epithelial Cells 3-5 Amorphous Sediment 1+ Urine Bacteria Rare CXR WITHOUT ACUTE PATHOLOGY Departure - Departure Clinical Impression: Severe sepsis, Elevated lactic acid level Leukopenia Qualifiers: Leukopenia type: neutropenia Esophageal cancer Qualifiers: Malignant neoplasm of esophagus location: unspecified location Qualified Code(s ): C15.9 - Malignant neoplasm of esophagus, unspecified Hypotension Qualifiers: Hypotension type: other hypotension type Qualified Code(s): I95.89 - Other hypotension Disposition: Transfer to Hospital Condition: Serious Departure Forms: ED Discharge - Pt. Copy, Patient Portal Self Enrollment Referrals: Bairon Rehman III, MD [Primary Care Provider] - 1-2 Weeks Home Medications: Ambulatory Orders Acetamin W/Cod Elix 120/12 20 ml PO Q4HR PRN 09/20/17 Amlodipine Besylate 5 mg PO DAILY 09/20/17 Aspirin [Adult Aspirin Regimen] 81 mg PO BEDTIME 09/20/17 Atorvastatin Calcium [Lipitor] 40 mg PO BEDTIME 09/20/17 Cyanocobalamin [Vitamin B-12] 1,000 mcg PO DAILY 09/20/17 Dexamethasone 4 mg PO PRN PRN 09/20/17 Doxazosin Mesylate 1 mg PO BEDTIME 09/20/17 LORazepam [Ativan] 1 mg PO PRN 09/20/17 Melatonin 10 mg PO DAILY 09/20/17 Metoclopramide Syrup [Reglan Syrup] 5 mg PO Q6H PRN 09/20/17 Omeprazole [Prilosec] 20 mg PO DAILY 09/20/17 Ondansetron [Zofran Odt] 8 mg PO Q8H PRN 09/20/17 Potassium Chloride [Klor-Con Sprinkle] 10 meq PO DAILY 09/20/17 Valsartan-Hydrochlorothiazide [Valsartan/Hydrochlorothia 320-25 mg] 1 tab PO DAILY 09/20/17 Apixaban [Eliquis] 5 mg PO BID #60 tab 09/22/17 Doxycycline Hyclate [Vibramycin] 100 mg PO BID #14 cap 09/22/17 Polyethylene Glycol 3350 [Miralax] 17 gm PO DAILY pckt 09/22/17 Critical Care Note - Critical Care Note Total Time (mins): 45 Comments: HERE WITH HYPOTENSION, SEVERE SEPSIS, FAILURE OF OUTPATIENT ANTIBIOTICS. GETTING LARGE VOLUME FLUID RESUSITATION, IV VANCOMYCIN, IV MEROPENAM, HAS HAD MULTIPLE PHONE CONSULTATIONS. Transfer to Outside Facility - Transfer Information Accepting Provider:: DR MEYER Accepting Facility: [facility] Reason for Transfer: ICU
--- NOTE | 2017-09-29 11:24 | RAD ---
EXAM DESCRIPTION: Chest,2 Views CLINICAL HISTORY: FEVER, CHILLS, LEUKOCYTOSIS COMPARISON: Chest radiograph dated September 20, 2017 Findings/impression: Frontal and lateral views of the chest. Right upper extremity PICC line with distal tip projecting in the mid SVC. Cardiomediastinal silhouette and pulmonary vascularity are within normal limits. Minimal linear opacities in the bilateral lung bases most likely represent subsegmental atelectasis. Otherwise, lungs are clear without focal consolidative infiltrates. No pleural effusion. No pneumothorax. No acute osseous abnormality. Electronically signed by: Bairon Villa MD 09/29/2017 11:23 AM [facility]
[2017-09-29] MEDS ORDERED: SODIUM CHLORIDE 0.9% 1000ML 1,000 ML IVS ONE ×3 (11:44→12:17)
[2017-09-29] MEDS ORDERED: SODIUM CHLORIDE 0.9% 250ML 250 ML IVS ONE (12:17)
[2017-09-29] MEDS ORDERED: MEROPENEM 1 GM in SODIUM CHL 0.9% 50ML MIN-BAG+ 50 ML IVPB ONE (12:26)
[2017-09-29] MEDS ORDERED: VANCOMYCIN HCL INJ 1,000 MG in SODIUM CHLORIDE 0.9% 250ML 250 ML IVPB ONE (12:27)
[2017-09-29] MEDS ORDERED: TBO-FILGRASTIM 480 MCG/0.8 ML SYRINGE SUBCU ONE (12:57)
[2017-09-29] MEDS ORDERED: SODIUM CHL 0.9% 50ML MIN-BAG+ 50 ML IVPB ONE (13:17)
[2017-09-29] MEDS ORDERED: MEROPENEM 1 GM VIAL IVPB ONE (13:18)
[2017-09-29] MEDS ORDERED: VANCOMYCIN HCL INJ 1,000 MG VIAL IVPB ONE (13:18)
[2017-09-29] MEDS ORDERED: SODIUM CHLORIDE 0.9% 250ML 250 ML ONE (13:18)
[2017-09-30 08:33] VITALS: BP 128/69; TEMP 98.2; O2SAT 93
== END 2017-09-29 16:00 | disposition short-term general hospital (02) ==
LOC: ER 10:51
DX: A41.9 Sepsis, unspecified organism (principal); C32.1 Malignant neoplasm of supraglottis; D70.9 Neutropenia, unspecified; I95.89 Other hypotension; R74.0 Nonspecific elevation of levels of transaminase and lactic acid dehydrogenase [LDH]; I10 Essential (primary) hypertension; K21.9 Gastro-esophageal reflux disease without esophagitis; Z79.82 Long term (current) use of aspirin; Z79.899 Other long term (current) drug therapy
CPT/HCPCS: 36415; 71046; 80053; 81001; 83605; 85025; 87040; J1447; J2185; J3370; J7030; J7050

== ENCOUNTER 2017-11-25 08:45 | Emergency (ER) | payer MEDICARE, OTHER ==
[2017-11-25 09:00] VITALS: TEMP 98.4
[2017-11-25] MEDS ORDERED: MORPHINE SULFATE INJ 10 MG/ML VIAL IM ONE (09:14)
[2017-11-25] MEDS ORDERED: ONDANSETRON INJ 4 MG/2 ML VIAL IM ONE (09:15)
--- NOTE | 2017-11-25 09:19 | ED.PDOC ---
History of Present Illness - General Chief Complaint: Trauma Stated Complaint: Fall 1 week ago - R-sided discomfort Time Seen by Provider: 11/25/17 09:07 Source: patient, family Exam Limitations: no limitations - History of Present Illness Timing/Duration: 1 week Severity: severe Improving Factors: rest Worsening Factors: movement, other - cough and vomiting Associated Symptoms: chest pain, cough Allergies/Adverse Reactions: Allergies NO KNOWN ALLERGY Allergy (Verified 09/20/17 21:17) Home Medications: Ambulatory Orders Atorvastatin Calcium [Lipitor] 40 mg PO BEDTIME 09/20/17 Cyanocobalamin [Vitamin B-12] 1,000 mcg PO DAILY 09/20/17 Melatonin 10 mg PO DAILY 09/20/17 Omeprazole [Prilosec] 20 mg PO DAILY 09/20/17 Review of Systems - Review of Systems Constitutional: States: weakness. Denies: chills, fever EENTM: States: no symptoms reported Respiratory: States: cough. Denies: short of breath, wheezing Cardiology: States: chest pain. Denies: edema, syncope Gastrointestinal/Abdominal: States: nausea, vomiting. Denies: abdominal pain, diarrhea Genitourinary: States: no symptoms reported Musculoskeletal: States: neck pain Skin: Denies: dryness, rash Neurological: Denies: numbness, paresthesia Endocrine: States: no symptoms reported Past Medical History (General) - Patient Medical History Hx Seizures: No Hx Stroke: No Hx Asthma: No Hx of COPD: No Hx Congestive Heart Failure: No Hx Pacemaker: No Hx Hypertension: Yes Hx Diabetes: No Hx Gastroesophageal Reflux: Yes Hx Cancer: Yes - epiglottis, neck Hx MRSA: No Surgical History: other - Vaccination History Hx Influenza Vaccination: Yes Hx Pneumococcal Vaccination: No - Social History Hx Tobacco Use: No Hx Alcohol Use: No Hx Substance Use: No Hx Physical Abuse: No Hx Emotional Abuse: No Family Medical History - Family History Mother Family History: Unknown Living Status: Still Living Age at (years of age): 53 Cause of : breast CA Father Living Status: Hx Family Diabetes: Yes Physical Exam - Physical Exam General Appearance: Alert, Obvious distress Eye Exam: left normal Ears, Nose, Throat: hearing grossly normal Neck: other - swollen anterior and L neck with radiation silveira to skin Respiratory: lungs clear, normal breath sounds, no respiratory distress, other - tender R anterior rib margin at sternal juction Cardiovascular/Chest: normal peripheral pulses, regular rate, rhythm, no edema Gastrointestinal/Abdominal: normal bowel sounds, non tender, soft, other - Gastrostomy tube to epigastrium Rectal Exam: deferred Back Exam: normal inspection Neurologic: normal mood/affect, oriented x 3 Skin Exam: normal color, warm/dry Progress - EKG/XRAY/CT XRAY: chest - no pneumothorax, mild atelectasis Departure - Departure Clinical Impression: Costochondral chest pain Disposition: Discharge to Home or Self Care Departure Forms: ED Discharge - Pt. Copy, Patient Portal Self Enrollment Instructions: DI for Trauma Referrals: Bairon Rehman III, MD [Primary Care Provider] - 1-2 Weeks Home Medications: Ambulatory Orders Atorvastatin Calcium [Lipitor] 40 mg PO BEDTIME 09/20/17 Cyanocobalamin [Vitamin B-12] 1,000 mcg PO DAILY 09/20/17 Melatonin 10 mg PO DAILY 09/20/17 Omeprazole [Prilosec] 20 mg PO DAILY 09/20/17 Additional Instructions: . Heating pad to area. Use ibuprofen 600 mg per tube 3-4 times per day for rib pain
--- NOTE | 2017-11-25 09:39 | RAD ---
Procedure: XR CHEST 2 VIEWS Exam Date: 11/25/2017 9:13 AM CDT Ordering Provider: Ozzy Christian Clinical Indication: R anterior chest pain Comparison: November 29, 2017 Findings: There is mild bibasilar subsegmental atelectasis. No pleural effusion or pneumothorax is present. Heart size is normal. Vascular calcifications are seen in the aorta. Impression: Mild bibasilar subsegmental atelectasis. Electronically signed by: Melida Marshall MD 11/25/2017 9:38 AM CDT
[2017-11-25 10:28] VITALS: BP 150/73; O2SAT 95
== END 2017-11-25 10:24 | disposition home or self-care (01) ==
LOC: ER 08:45
DX: R07.1 Chest pain on breathing (principal); I10 Essential (primary) hypertension; K21.9 Gastro-esophageal reflux disease without esophagitis; Z85.89 Personal history of malignant neoplasm of other organs and systems
CPT/HCPCS: 71046; J2270; J2405

== ENCOUNTER → 2018-01-24 | Outpatient (CLI) | payer MEDICARE, OTHER | LOC: GMAL 15:09 | PROVIDERS: ATTEND Family Medicine | DX: D50.8 Other iron deficiency anemias (principal) ==

== ENCOUNTER 2018-09-18 16:00 | Emergency (ER) | payer MEDICARE, OTHER ==
[2018-09-18 16:14] VITALS: TEMP 96.7
[2018-09-18] MEDS ORDERED: SODIUM CHLORIDE 0.9% (FLUSH) 10 ML SYG IV PRN (16:28)
[2018-09-18] MEDS ORDERED: ONDANSETRON INJ 4 MG/2 ML VIAL IV ONE (16:28)
--- NOTE | 2018-09-18 17:05 | ED.PDOC ---
History of Present Illness - General Chief Complaint: General Stated Complaint: Feeling poorly Time Seen by Provider: 09/18/18 16:26 Source: patient, family Exam Limitations: no limitations - History of Present Illness Initial Comments: PT PRESENTS TO THE ED WITH COMPLAINT OF GENERALIZED MALAISE AND NAUSEA FOR THE PAST 2 DAYS. PT DENIES DIARRHEA, ABDOMINAL PAIN, FEVER, COUGH, CONGESTION, OR SOB. Timing/Duration: 24 hours Severity: moderate Improving Factors: rest Worsening Factors: movement Associated Symptoms: loss of appetite, malaise, nausea/vomiting Allergies/Adverse Reactions: Allergies NO KNOWN ALLERGY Allergy (Verified 09/20/17 21:17) Home Medications: Ambulatory Orders Atorvastatin Calcium [Lipitor] 40 mg PO BEDTIME 09/20/17 Cyanocobalamin [Vitamin B-12] 1,000 mcg PO DAILY 09/20/17 Melatonin 10 mg PO DAILY 09/20/17 Omeprazole [Prilosec] 20 mg PO DAILY 09/20/17 Ondansetron [Zofran Odt] 8 mg PO TID PRN #20 tab 09/18/18 Review of Systems - Review of Systems Constitutional: States: chills, malaise, weakness. Denies: fever EENTM: Denies: nose congestion, throat pain Respiratory: Denies: cough, short of breath Cardiology: Denies: chest pain, palpitations Gastrointestinal/Abdominal: States: nausea. Denies: abdominal pain, diarrhea, vomiting Genitourinary: Denies: dysuria, frequency Musculoskeletal: Denies: joint pain, joint swelling Skin: Denies: change in color, lesions Neurological: States: no symptoms reported Endocrine: States: no symptoms reported Past Medical History (General) - Patient Medical History Hx Seizures: No Hx Stroke: No Hx Asthma: No Hx of COPD: No Hx Congestive Heart Failure: No Hx Pacemaker: No Hx Hypertension: Yes Hx Diabetes: No Hx Gastroesophageal Reflux: Yes Hx Cancer: Yes - epiglottis, neck Hx MRSA: No Surgical History: other - Vaccination History Hx Influenza Vaccination: Yes - 2018 Hx Pneumococcal Vaccination: Yes - Social History Hx Tobacco Use: Yes Hx Alcohol Use: Yes - Evening drink Hx Substance Use: No Hx Physical Abuse: No Hx Emotional Abuse: No Family Medical History - Family History Mother Family History: Unknown Living Status: Still Living Age at (years of age): 53 Cause of : breast CA Father Living Status: Hx Family Diabetes: Yes Physical Exam - Physical Exam General Appearance: Alert, No apparent distress, Well Developed, Well Groomed, Well Hydrated Eye Exam: bilateral normal Ears, Nose, Throat: hearing grossly normal, normal ENT inspection Neck: non-tender, full range of motion, supple Respiratory: lungs clear, normal breath sounds, no respiratory distress Cardiovascular/Chest: regular rate, rhythm, no murmur Gastrointestinal/Abdominal: non tender, soft, no organomegaly Extremity: normal range of motion, non-tender Neurologic: alert, normal mood/affect, oriented x 3 Skin Exam: normal color, warm/dry Progress - Progress Progress: 09/18/18 18:18 PT RESTING COMFORTABLY ON RE-EVALUATION. PT REFUSED ZOFRAN AND IV WITH FLUIDS, STATING HE WAS NO LONGER NAUSEATED. LABS AND DIAGNOSTICS DISCUSSED. - Results/Orders Results/Orders: Laboratory Tests 09/18/18 09/18/18 09/18/18 16:50 16:50 16:50 WBC 7.6 RBC 4.86 Hgb 15.1 Hct 44.6 MCV 91.6 MCH 31.0 MCHC 33.8 RDW 14.0 Plt Count 203 MPV 8.9 Absolute Neuts (auto) 6.00 Absolute Lymphs (auto) 0.80 L Absolute Monos (auto) 0.70 Absolute Eos (auto) 0.20 Absolute Basos (auto) 0.10 Neutrophils % 78.0 Lymphocytes % 9.9 L Monocytes % 8.7 Eosinophils % 2.3 Basophils % 1.1 Sodium 134 L Potassium 3.7 Chloride 102 Carbon Dioxide 22 Anion Gap 13.7 BUN 21 H Creatinine 1.16 BUN/Creatinine Ratio 18.1 Random Glucose 103 Serum Osmolality 271.5 L Calcium 8.6 Total Bilirubin 0.4 Direct Bilirubin 0.1 Indirect Bilirubin 0.3 AST 22 ALT 21 Alkaline Phosphatase 57 Serum Total Protein 6.5 Albumin 3.7 Lipase 20 L Urine Color Urine Appearance Urine pH Ur Specific [place] Urine Protein Urine Glucose (UA) Urine Ketones Urine Blood Urine Nitrite Urine Bilirubin Urine Urobilinogen Ur Leukocyte Esterase Urine RBC Urine WBC Ur Epithelial Cells Urine Bacteria 09/18/18 17:32 WBC RBC Hgb Hct MCV MCH MCHC RDW Plt Count MPV Absolute Neuts (auto) Absolute Lymphs (auto) Absolute Monos (auto) Absolute Eos (auto) Absolute Basos (auto) Neutrophils % Lymphocytes % Monocytes % Eosinophils % Basophils % Sodium Potassium Chloride Carbon Dioxide Anion Gap BUN Creatinine BUN/Creatinine Ratio Random Glucose Serum Osmolality Calcium Total Bilirubin Direct Bilirubin Indirect Bilirubin AST ALT Alkaline Phosphatase Serum Total Protein Albumin Lipase Urine Color Yellow Urine Appearance Clear Urine pH 6.5 Ur Specific [place] 1.020 Urine Protein Negative Urine Glucose (UA) Negative Urine Ketones Negative Urine Blood Negative Urine Nitrite Negative Urine Bilirubin Negative Urine Urobilinogen 0.2 Ur Leukocyte Esterase Negative Urine RBC 0 Urine WBC 0 Ur Epithelial Cells 0 Urine Bacteria 0 - EKG/XRAY/CT EKG: Zhen - @47BPM, NL INTERVALS, NL AXIS, GOOD R WAVE PROGRESSION, Sinus, no ST T wave changes, Unchanged from - PREVIOUS FROM 09/20/17 Departure - Departure Clinical Impression: Nausea, Bradycardia, Dehydration Time of Disposition: 18:22 Disposition: Discharge to Home or Self Care Condition: Fair Departure Forms: ED Discharge - Pt. Copy, Patient Portal Self Enrollment Instructions: Nausea and Vomiting, Adult (DC), Bradycardia (DC), Dehydration, Adult (DC) Referrals: Bairon Rehman III, MD [Primary Care Provider] - 1-2 Days Prescriptions: Ondansetron [Zofran Odt] 8 mg PO TID PRN #20 tab PRN Reason: Nausea/Vomiting Home Medications: Ambulatory Orders Atorvastatin Calcium [Lipitor] 40 mg PO BEDTIME 09/20/17 Cyanocobalamin [Vitamin B-12] 1,000 mcg PO DAILY 09/20/17 Melatonin 10 mg PO DAILY 09/20/17 Omeprazole [Prilosec] 20 mg PO DAILY 09/20/17 Ondansetron [Zofran Odt] 8 mg PO TID PRN #20 tab 09/18/18
[2018-09-18 17:13] VITALS: O2SAT 97
[2018-09-18 18:33] VITALS: BP 156/78
== END 2018-09-18 18:33 | disposition home or self-care (01) ==
LOC: ER 16:00
DX: E86.0 Dehydration (principal); R11.0 Nausea; R00.1 Bradycardia, unspecified; I10 Essential (primary) hypertension; K21.9 Gastro-esophageal reflux disease without esophagitis; Z87.891 Personal history of nicotine dependence; Z85.09 Personal history of malignant neoplasm of other digestive organs

== ENCOUNTER → 2019-04-25 | Outpatient (CLI) | payer MEDICARE, OTHER ==
--- NOTE | 2019-04-27 10:24 | CT ---
EXAM DESCRIPTION: Soft Tissue Neck w/Contrast: Computed Tomography CLINICAL HISTORY: 69 years Male, MALIGNANT NEOPLASM OF TONGUE COMPARISON: CTA neck before lingual and oral pharyngeal surgery in May 2017, showing left cervical lymphadenopathy at levels 2A and level 3, left carotid and parapharyngeal spaces, as well as abnormal asymmetric soft tissue enhancement in the epiglottis and epiglottic folds anteriorly into the left of midline at and below the level of the hyoid bone.. TECHNIQUE: Spiral, axial 2.5 x 2.5 mm scans through the neck soft tissues after infusion of IV contrast. Sagittal and coronal 2.0 mm reconstructions. 3-D 160 Total Exam DLP: 360.39 mGy-cm. This exam was performed according to our departmental CT dose-optimization program which includes automated exposure control, adjustment of the mA and/or kV according to patient size and/or use of iterative reconstruction technique; to reduce radiation dose to as low as reasonably achievable (ALARA). FINDINGS: The posterior tongue base demonstrates a large midline defect which probably represents previous resection, including the lingual tonsil. Increased AP diameter of the oropharynx. The inferior base is asymmetric; right side extends more posteriorly than the left. Left base demonstrates irregular enhancement on axial series 2, image 51 extending inferiorly to the hyoid bone, image 2/56. Also demonstrated on coronal series 602, images 23-29 and sagittal series 601, images 53-61. No enhancement and more uniform low-density appearance of the base of the tongue to the right of midline. The uvula of the soft palate and extends completely to the posterior wall of the nasopharynx resulting in a well-defined division of the nasopharynx on the hypopharynx. The posterior nasopharynx is slightly effaced, with the fossa of Rosenmuller and torus tubarius flattened symmetrically with no abnormal enhancement. The right parotid gland and bilateral submandibular glands have been resected. Small lymph node, 9 mm with enhancement, abutting the adipose tissue anteriorly to the right hyoid bone. Also asymmetric thickening of tissue with deformity of the scan and cutaneous adipose tissue lateral to the right hyoid bone at the same level. At a slightly higher level, there is thickening in the adipose tissue abutting the right masseter muscle but no enhancement (images 2/29-35). No abnormal lymph nodes in the right parotid space, right parapharyngeal space, or right paracervical space. Free margin epiglottis and the epiglottic folds superiorly have been partially resected, with the vallecula no longer present but the piriform sinuses remain. No abnormal enhancement. IMPRESSION: 1. Previous resection of the midline tongue base and bilateral lingual tonsils, with a residual midline defect of the tongue base. 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 2. Enhancing 9 mm lymph node abutting the right surgical defect and adipose tissue at the level of the upper hyoid bone and the enhancement described above. This can be secondary to recent surgery, inflammatory change, or metastatic disease. No other abnormal enhancement noted in the surgical site or lateral soft tissues. Electronically signed by: Canelo Handley MD 04/27/2019 10:22 AM CDT
== END ==
LOC: CT 10:00
PROVIDERS: ATTEND Family Medicine
DX: C02.9 Malignant neoplasm of tongue, unspecified (principal); R59.0 Localized enlarged lymph nodes; Z98.890 Other specified postprocedural states

== ENCOUNTER → 2019-08-05 | Outpatient (CLI) | payer MEDICARE, OTHER | LOC: GMAL 10:29 | PROVIDERS: ATTEND Family Medicine | DX: Z12.5 Encounter for screening for malignant neoplasm of prostate (principal); I10 Essential (primary) hypertension; Z79.899 Other long term (current) drug therapy ==

== ENCOUNTER → 2019-08-27 | Outpatient (CLI) | payer MEDICARE, OTHER | LOC: GMAL 10:57 | PROVIDERS: ATTEND Family Medicine | DX: R97.20 Elevated prostate specific antigen [PSA] (principal) ==

== ENCOUNTER → 2019-10-04 | Outpatient (CLI) | payer MEDICARE, OTHER | LOC: EDSTATUS 12:30 → AMB 13:00 | PROVIDERS: ATTEND Surgery | DX: Z53.9 Procedure and treatment not carried out, unspecified reason (principal) ==

== ENCOUNTER 2019-12-20 05:46 | Day surgery (SDC) | payer MEDICARE, OTHER ==
--- NOTE | 2019-12-18 10:00 | RAD ---
EXAM DESCRIPTION: Chest,2 Views CLINICAL HISTORY: PRE OP COMPARISON: Previous chest x-ray November 25, 2017 TECHNIQUE: PA/lateral FINDINGS: There is no acute appearing cardiac or pulmonary abnormality. Heart size is normal with normal pulmonary vascularity. No pleural effusion or pneumothorax. Lungs are clear with no consolidating infiltrate. Lateral view shows intact sternum and T-spine. IMPRESSION: No acute process is identified in the chest. Electronically signed by: Serafin Taylor MD 12/18/2019 9:58 AM CDT
[2019-12-20] MEDS ORDERED: MIDAZOLAM INJ 2 MG/2 ML VIAL ONE (07:00)
[2019-12-20] MEDS ORDERED: fentaNYL CITRATE INJ 50 MCG/ML 2 ML AMP ONE (07:00)
[2019-12-20] MEDS ORDERED: FAMOTIDINE 10 MG/ML ML IV ONE (07:00)
[2019-12-20] MEDS ORDERED: LIDOCAINE 1% 10 ML VIAL INJ ONE (07:00)
[2019-12-20] MEDS ORDERED: ePHEDrine SULF 50 MG/ML ONE (07:00)
[2019-12-20] MEDS ORDERED: PROPOFOL 200 MG/20 ML VIAL IV ONE (07:00)
[2019-12-20] MEDS ORDERED: GLYCOPYRROLATE 0.2 MG/ML VIAL ONE (07:00)
[2019-12-20] MEDS ORDERED: DEXAMETHASONE INJ 10 MG/ML VIAL ONE (07:00)
[2019-12-20] MEDS ORDERED: KETAMINE HCL 100 MG/ML VIAL ONE (07:00)
[2019-12-20] MEDS ORDERED: MAGNESIUM SULFATE INJ 1 GM/2 ML VIAL ONE (07:00)
[2019-12-20] MEDS ORDERED: BUPIVACAINE LIPOSOME 13.3 MG/ML VIAL INJ ONE ×2 (12:11→13:39)
[2019-12-20] MEDS ORDERED: BUPIVACAINE 0.5% 30 ML VIAL INJ ONE ×3 (12:11→13:39)
[2019-12-20] MEDS ORDERED: HYDROcodone 5MG/APAP 325MG 1 EA TAB PO ONE (15:10)
[2019-12-20 15:29] VITALS: O2SAT 97
--- NOTE | 2019-12-20 15:47 | OP ---
DATE OF PROCEDURE: 12/20/19 PREOPERATIVE DIAGNOSIS: 1. Right inguinal hernia. POSTOPERATIVE DIAGNOSIS: 1. Right inguinal hernia. PROCEDURE: 1. Repair of right inguinal hernia with PHS mesh. 2. Removal of 7 cm retroperitoneal tumor. 3. Ilioinguinal nerve block for postoperative pain control. SURGEON: Ari Durán MD. ANESTHESIA: General and local. FINDINGS: Large cord lipoma, moderate sized sac, chronic scarring. COMPLICATIONS: None. ESTIMATED BLOOD LOSS: Minimal. CONDITION: Stable. PLAN: Discharge. INDICATION: As stated. PROCEDURE: General anesthesia was induced. He was prepped and draped in sterile fashion. 0.5% Marcaine with epinephrine was used at the incision site. An ilioinguinal nerve block was performed using 3 cc of anesthesia based on anatomic landmarks. Incision was made. Subcutaneous tissues were taken down. The subcutaneous vessel was identified and ligated. The external oblique aponeurosis was identified. A qi was made. It was opened along its fibers with Metzenbaum. The nerve was identified and dissected out and protected inferiorly. The cord was isolated. 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 It was ligated at its base with 2-0 Vicryl. We then the moderate to large cord from the cord structures and reduced it. We put an Army-Susank in to keep the epigastric vessels anterior while we used 3 moist Raytec sponges and finger sweep to create the preperitoneal plane. He large PHS mesh was then placed. The preperitoneal plane was nice and flat. A cut was made, wrapped around the cord, non-stricturing and secured to the shelving edge and then secured at the tubercle. The mesh was then laid out laterally underneath the external oblique. The nerve was still nicely out the way. The external oblique was then closed with a running 2-0 Vicryl and the wound in two activities of daily living layers after injecting more local anesthesia. He tolerated the procedure. The patient was awakened and taken to Recovery to be discharged. #[id number] MTDD
[2019-12-20 15:49] VITALS: BP 124/80; TEMP 97
== END 2019-12-20 15:50 | disposition home or self-care (01) ==
LOC: AMB 05:46
PROVIDERS: ATTEND Surgery
DX: K40.90 Unilateral inguinal hernia, without obstruction or gangrene, not specified as recurrent (principal); D17.6 Benign lipomatous neoplasm of spermatic cord; J44.9 Chronic obstructive pulmonary disease, unspecified; I10 Essential (primary) hypertension; K21.9 Gastro-esophageal reflux disease without esophagitis; F17.210 Nicotine dependence, cigarettes, uncomplicated; Z88.1 Allergy status to other antibiotic agents; Z88.8 Allergy status to other drugs, medicaments and biological substances; Z79.899 Other long term (current) drug therapy
CPT/HCPCS: 00830; 36415; 49505; 71046; 80048; 85025; 88304; J1100; J2250; J3010; J3475; J3490

== ENCOUNTER 2020-03-05 06:40 | Day surgery (SDC) | payer MEDICARE, OTHER ==
[~2020-03-05 06:40] MED LIST: LACTATED RINGERS 1,000 ML ONE; SODIUM CHLORIDE 0.9% (FLUSH) 10 ML SYG ONE
[2020-03-05] MEDS ORDERED: LIDOCAINE 1% 10 ML VIAL INJ ONE (07:00)
[2020-03-05] MEDS ORDERED: PROPOFOL 200 MG/20 ML VIAL IV ONE (07:00)
[2020-03-05] MEDS ORDERED: MIDAZOLAM INJ 2 MG/2 ML VIAL ONE (07:25)
[2020-03-05] MEDS ORDERED: KETAMINE HCL 100 MG/ML VIAL ONE (07:25)
--- NOTE | 2020-03-05 09:21 | OP ---
DATE OF PROCEDURE: 03/05/20 PREOPERATIVE DIAGNOSIS: 1. History of colonic polyps, last scoped 10 years ago. POSTOPERATIVE DIAGNOSIS: 1. Colonic polyps x2. PROCEDURE: 1. Colonoscopy with excision of polyp x2. SURGEON: Ari Durán MD ANESTHESIA: General. FINDINGS: He had approximately 2.5 mm polyp, one at the distal transverse and one at about 20 cm. He also had few diverticulosis. COMPLICATIONS: None. ESTIMATED BLOOD LOSS: None. PLAN: Discharge. INDICATION: As stated. PROCEDURE: General anesthesia was induced in the lateral position. Digital rectal exam was normal. The colonoscope was inserted carefully and easily passed through all the way to the cecum which was identified by the appendiceal orifice and ileocecal valve. Upon withdrawal, the colon surfaces appeared normal. A couple of undigested beans were apparent. On withdrawal, a single polyp was seen near the distal transverse colon. This was excised completed with forceps and then on further withdrawal, again, normal surfaces. We saw a polyp at 20 cm which we had seen on the way in and now encountered again and excised. Retroflexion was normal but for a few small hemorrhoids. The patient tolerated the procedure and was taken to Recovery to be discharged and followup in the office. #[id number] cc: Bairon Rehman MD MTDD
[2020-03-05 13:33] VITALS: BP 146/63; TEMP 97.9; O2SAT 94
== END 2020-03-05 10:05 | disposition home or self-care (01) ==
LOC: AMB 06:40
PROVIDERS: ATTEND Surgery
DX: Z12.11 Encounter for screening for malignant neoplasm of colon (principal); D12.6 Benign neoplasm of colon, unspecified; D12.3 Benign neoplasm of transverse colon; K57.30 Diverticulosis of large intestine without perforation or abscess without bleeding; K64.9 Unspecified hemorrhoids; F17.200 Nicotine dependence, unspecified, uncomplicated; F41.9 Anxiety disorder, unspecified; F32.9 Major depressive disorder, single episode, unspecified; J44.9 Chronic obstructive pulmonary disease, unspecified; E78.00 Pure hypercholesterolemia, unspecified; I10 Essential (primary) hypertension; K21.9 Gastro-esophageal reflux disease without esophagitis; Z88.1 Allergy status to other antibiotic agents; Z88.8 Allergy status to other drugs, medicaments and biological substances; Z79.899 Other long term (current) drug therapy; Z85.810 Personal history of malignant neoplasm of tongue
CPT/HCPCS: 00812; 45380; 88305; A4216; J2250; J3490; J7120

== ENCOUNTER → 2020-06-04 | Outpatient (CLI) | payer MEDICARE, OTHER | LOC: GMAL 16:37 | PROVIDERS: ATTEND Family Medicine | DX: D51.3 Other dietary vitamin B12 deficiency anemia (principal); I10 Essential (primary) hypertension; E55.9 Vitamin D deficiency, unspecified; M10.9 Gout, unspecified; E78.2 Mixed hyperlipidemia; R97.20 Elevated prostate specific antigen [PSA]; R73.09 Other abnormal glucose; Z13.29 Encounter for screening for other suspected endocrine disorder ==

== ENCOUNTER → 2020-07-09 | Outpatient (CLI) | payer MEDICARE, OTHER ==
--- NOTE | 2020-07-10 09:19 | US ---
EXAM: Carotid Duplex CLINICAL HISTORY: OCCLUSION AND STENOSIS OF RIGHT CAROTID ARTERY COMPARISON STUDY: CTA neck from June 09, 2017. TECHNICAL: Ultrasound, color-flow, and Doppler evaluation of the carotid arteries was performed. FINDINGS: Mild atherosclerotic plaque is seen within the common and internal carotid arteries. There are no flow velocity elevations within the common or internal carotid arteries that would suggest a stenosis. There is no measurable significant stenosis. The vertebral arteries show antegrade flow. The maximum systolic flow velocity measured within the right common carotid artery is 89 cm/s and 78 cm/s on the left. The maximum systolic flow velocity measured in the right internal carotid artery is 70 cm/s and 80 cm/s on the left. The right ICA/CCA ratio is 0.8 and the left 1.0. IMPRESSION: MILD DIFFUSE ATHEROSCLEROTIC PLAQUE WITHOUT A HEMODYNAMIC SIGNIFICANT STENOSIS OF GREATER THAN 35%. Electronically signed by: Jca Conteh MD 07/10/2020 9:18 AM [facility]
== END ==
LOC: US 08:56
PROVIDERS: ATTEND Family Medicine
DX: I65.23 Occlusion and stenosis of bilateral carotid arteries (principal)